=== PATIENT | male | born 1940 | race Caucasian/White ===

== ENCOUNTER 2019-02-14 10:43 | Inpatient (IN) | payer MEDICARE, OTHER ==
[~2019-02-14] VITALS: Ht 175.3 cm; Wt 57.9 kg
[~2019-02-14 10:43] MED LIST: AMLO2.5T2 PO; BUPR100T6 PO; HYDR12.55 PO; LISI-600 PO; METO25TA6 PO; SPIIN INH; TAMS0.4C32 PO; VIT1CAPS6 PO; XAL0.005OS EACHEYE
[2019-02-14 12:16] LABS: BASOPHILS # (AUTO) 0.1 X10'3 (0-0.2); BASOPHILS % (AUTO) 0.7 % (0-1); EOSINOPHILS # (AUTO) 0.2 X10'3 (0-0.9); EOSINOPHILS % (AUTO) 1.8 % (0-6); HEMATOCRIT 30.3 % (42.0-52.0); LYMPHOCYTES # (AUTO) 0.6 X10'3 (1.1-4.8); LYMPHOCYTES % (AUTO) 7.3 % (21-51); MEAN CORPUSCULAR HEMOGLOBIN 30.4 PG (27.0-31.0); MEAN CORPUSCULAR HGB CONC 32.9 g/dL (33.0-36.5); MEAN CORPUSCULAR VOLUME 92.3 FL (78-98); MEAN PLATELET VOLUME 7.2 FL (7.4-10.4); MONOCYTES # (AUTO) 0.6 X10'3 (0-0.9); NEUTROPHILS # (AUTO) 7.2 X10'3 (1.8-7.7); NEUTROPHILS % (AUTO) 83.2 % (42-75); PLATELET COUNT 277 X10'3 (140-440); RED BLOOD COUNT 3.28 X10'6 (4.70-6.10); RED CELL DISTRIBUTION WIDTH 15.2 % (11.5-14.5); WHITE BLOOD COUNT 8.7 X10'3 (4.5-11.0)
[2019-02-14 12:31] LABS: ALANINE AMINOTRANSFERASE 49 U/L (12-78); ALBUMIN 3.4 G/DL (3.4-5.0); ALBUMIN/GLOBULIN RATIO 0.8 (1.1-1.5); ALKALINE PHOSPHATASE 332 IU/L (46-116); ANION GAP 11 (8-16); ASPARTATE AMINO TRANSFERASE 25 U/L (10-37); BILIRUBIN,TOTAL 0.5 MG/DL (0.1-1.0); BLOOD UREA NITROGEN 94 MG/DL (7-18); BUN/CREATININE RATIO 13.9 (5.4-32.0); CALCIUM 8.9 MG/DL (8.5-10.1); CHLORIDE 108 MMOL/L (99-107); CREATININE 6.77 MG/DL (0.60-1.10); GLUCOSE 90 MG/DL (70-104); LIPASE 182 U/L (73-393); POTASSIUM 5.2 MMOL/L (3.5-5.1); SODIUM 136 MMOL/L (135-145); TOTAL CARBON DIOXIDE 17.2 MMOL/L (24-32); TOTAL PROTEIN 7.7 G/DL (6.4-8.2); eGFR 8 ML/MIN
[2019-02-14 13:04] LABS: MAGNESIUM 2.5 MG/DL (1.5-2.4); PHOSPHORUS 6.7 MG/DL (2.3-4.5)
[2019-02-14] MEDS ORDERED: ALBU8.5H8 INH (13:10)
[2019-02-14] MEDS ORDERED: ALBU2.5V12 NEB (13:10)
[2019-02-14 14:03] LABS: CLARITY,URINE SLIGHTLY CLOUDY (Clear); COLOR,URINE STRAW (Yellow); GLUCOSE, URINE NEGATIVE (Neg); KETONES,URINE NEGATIVE (Neg); LEUKOCYTE ESTERASE ,URINE MODERATE (Neg); NITRITES, URINE POSITIVE (Neg); OCCULT BLOOD,URINE SMALL (Neg); PH,URINE 5.5 (4.8-8.0); PROTEIN,URINE 100 mg/dl (Neg); UROBILINOGEN,URINE 0.2 E.U/dL (0.2-1.0)
[2019-02-14] MEDS ORDERED: ondansetron/PF 4mg/2ml inj IV PRN (14:10)
[2019-02-14] MEDS ORDERED: diphenhydrAMINE 25mg capsule PO PRN (14:10)
[2019-02-14] MEDS ORDERED: acetaminophen 325mg tablet PO PRN (14:10)
[2019-02-14 14:11] LABS: UA COLLECTION TYPE FOLEY CATH
[2019-02-14 14:12] LABS: BACTERIA,URINE 2+ /HPF (Neg); MUCUS STRANDS NONE SEEN /LPF (Neg); SQUAMOUS EPITHELIAL CELL,UR NONE SEEN /LPF (FEW); WBC CLUMPS,URINE MODERATE /HPF (NEGATIVE); WBC,URINE TNTC /HPF (0-4)
[2019-02-14] MEDS ORDERED: midazolam 2 mg/2 ml injection ONE (15:03)
[2019-02-14] MEDS ORDERED: LIDOcaine 1%/PF 5ML 10 MG/ML VIAL ONE (15:03)
[2019-02-14] MEDS ORDERED: heparin 1,000unit/ml 10ml vial 10 ML ONE (15:03)
[2019-02-14] MEDS ORDERED: fentaNYL/PF 50MCG/1 ML 2ML syringe ONE (15:04)
--- NOTE | 2019-02-14 15:13 | NUR ---
pt off floor to ir for Dialysis cath
--- NOTE | 2019-02-14 16:45 | NUR ---
pt back to ed from IR. resting with eyes closed no signs of distress. dime sized [place] of blood on dressing. will continue to monitor.
--- NOTE | 2019-02-14 17:37 | NUR ---
Received report from Emy in ER. Pt oriented to room, unit, and plan of care. Call light in reach. No needs voiced at this time.
[2019-02-14 18:00] VITALS: BP 160/69
--- NOTE | 2019-02-14 18:16 | NUR ---
Problems reprioritized. Patient report given, questions answered & plan of care reviewed with enma.
--- NOTE | 2019-02-14 18:24 | NUR ---
Patient in room ED 13. I have received report from Leona TORRES and had the opportunity to ask questions and assume patient care.
[2019-02-14] MEDS: docusate sod 100mg capsule PO SCH (19:57)
[2019-02-14] MEDS: HYDROcodone/acetaminophen 5mg/325mg tablet PO PRN (19:58)
[2019-02-14 22:00] VITALS: BP 152/73
[2019-02-15 02:00] VITALS: BP 141/66
[2019-02-15] MEDS: HYDROcodone/acetaminophen 5mg/325mg tablet PO PRN ×3 (04:39→23:56)
[2019-02-15 05:36] LABS: BASOPHILS # (AUTO) 0.1 X10'3 (0-0.2); BASOPHILS % (AUTO) 0.6 % (0-1); EOSINOPHILS # (AUTO) 0.1 X10'3 (0-0.9); EOSINOPHILS % (AUTO) 0.9 % (0-6); HEMATOCRIT 27.6 % (42.0-52.0); HEMOGLOBIN 9.4 g/dl (14.0-17.9); LYMPHOCYTES # (AUTO) 0.8 X10'3 (1.1-4.8); LYMPHOCYTES % (AUTO) 9.5 % (21-51); MEAN CORPUSCULAR HEMOGLOBIN 30.8 PG (27.0-31.0); MEAN CORPUSCULAR HGB CONC 34.1 g/dL (33.0-36.5); MEAN CORPUSCULAR VOLUME 90.4 FL (78-98); MEAN PLATELET VOLUME 7.5 FL (7.4-10.4); MONOCYTES # (AUTO) 0.8 X10'3 (0-0.9); MONOCYTES % (AUTO) 9.7 % (2-12); NEUTROPHILS # (AUTO) 6.4 X10'3 (1.8-7.7); NEUTROPHILS % (AUTO) 79.3 % (42-75); PLATELET COUNT 248 X10'3 (140-440); RED BLOOD COUNT 3.05 X10'6 (4.70-6.10)
[2019-02-15 05:57] LABS: ALANINE AMINOTRANSFERASE 40 U/L (12-78); ALBUMIN 2.9 G/DL (3.4-5.0); ALBUMIN/GLOBULIN RATIO 0.7 (1.1-1.5); ALKALINE PHOSPHATASE 281 IU/L (46-116); ANION GAP 16 (8-16); ASPARTATE AMINO TRANSFERASE 22 U/L (10-37); BILIRUBIN,TOTAL 0.5 MG/DL (0.1-1.0); BLOOD UREA NITROGEN 90 MG/DL (7-18); BUN/CREATININE RATIO 14.4 (5.4-32.0); CALCIUM 8.4 MG/DL (8.5-10.1); CHLORIDE 107 MMOL/L (99-107); CREATININE 6.23 MG/DL (0.60-1.10); GLUCOSE 87 MG/DL (70-104); POTASSIUM 5.1 MMOL/L (3.5-5.1); SODIUM 138 MMOL/L (135-145); TOTAL CARBON DIOXIDE 15.4 MMOL/L (24-32); TOTAL PROTEIN 6.9 G/DL (6.4-8.2); eGFR 9 ML/MIN
[2019-02-15 06:00] VITALS: BP 142/56
--- NOTE | 2019-02-15 06:56 | NUR ---
Patient in room PCU 3013. I have received report from Sangeeta TORRES and had the opportunity to ask questions and assume patient care.
--- NOTE | 2019-02-15 07:25 | NUR ---
Problems reprioritized. Patient report given, questions answered & plan of care reviewed with Josue TORRES.
[2019-02-15] MEDS: docusate sod 100mg capsule PO SCH ×2 (07:46→20:48)
[2019-02-15] MEDS ORDERED: albumin (human) 25% 100ml IV 100 ML IV PRN (08:00)
[2019-02-15] MEDS ORDERED: normal saline 1000ml 250 ML IV PRN (08:00)
[2019-02-15] MEDS ORDERED: epoetin 20,000 units/ml inj IV ONE (08:00)
[2019-02-15] MEDS ORDERED: heparin 1,000 units/ml 10ml inj HE ONE ×2 (08:00)
[2019-02-15 11:00] VITALS: BP 157/73
[2019-02-15] MEDS ORDERED: ipratropium/albuterol 3ml nebule NEB PRN (11:00)
--- NOTE | 2019-02-15 12:47 | NUR ---
Notified by [facility] that patient's HR 120-140's. Pt denies complaint, currently receiving dialysis. Notified Dr Huitron of HR and pt is asymptomatic. Dr Huitron reviewed EKG readings, orders received to continue to monitor. If patient becomes symptomatic, please notify Kacy Bran. Will continue to monitor.
--- NOTE | 2019-02-15 14:17 | NUR ---
patient on dialysis. Addendum: 02/15/19 at 1418 by Josue Green RN Amended: Links added.
--- NOTE | 2019-02-15 16:13 | NUR ---
Notiflaureen Donis, Pt HR has been in the 130's to the 140's for two hours. Pt is now resting in bed with no complaints.
[2019-02-15] MEDS: metoprolol tartrate 12.5mg (1/2 tablet) PO SCH ×2 (17:27→20:00)
[2019-02-15 18:00] VITALS: BP 126/72
--- NOTE | 2019-02-15 18:45 | NUR ---
Problems reprioritized. Patient report given, questions answered & plan of care reviewed with Sangeeta TORRES.
--- NOTE | 2019-02-15 18:47 | NUR ---
Patient in room PCU 3013. I have received report from Josue TORRES and had the opportunity to ask questions and assume patient care.
[2019-02-15] MEDS: ipratropium/albuterol 3ml nebule NEB SCH ×3 (19:00→23:42)
[2019-02-15] MEDS: amLODIPine 2.5mg tablet PO SCH (20:48)
[2019-02-15] MEDS ORDERED: ipratropium 0.5 MG/2.5ML nebule IH SCH (21:00)
[2019-02-15] MEDS ORDERED: albuterol 2.5 MG/3 ML nebule NEB SCH (21:00)
[2019-02-15 22:00] VITALS: BP 145/61
--- NOTE | 2019-02-16 01:05 | NUR ---
Noted Urine culture positive f/Staph aureus. Cathed spec sent 02/14. DENTAL CHAIR ASSEMBLER notified. No orders given at this time.
[2019-02-16 02:30] VITALS: BP 142/60
[2019-02-16] MEDS: ipratropium/albuterol 3ml nebule NEB SCH ×6 (03:00→23:56)
--- NOTE | 2019-02-16 06:15 | NUR ---
Patient in room PCU 3013. I have received report from BRIAN Rutherford and had the opportunity to ask questions and assume patient care.
--- NOTE | 2019-02-16 06:32 | NUR ---
Problems reprioritized. Patient report given, questions answered & plan of care reviewed with Ethel TORRES.
[2019-02-16 06:47] LABS: BASOPHILS # (AUTO) 0.1 X10'3 (0-0.2); BASOPHILS % (AUTO) 0.7 % (0-1); EOSINOPHILS # (AUTO) 0.1 X10'3 (0-0.9); EOSINOPHILS % (AUTO) 1.8 % (0-6); HEMATOCRIT 27.1 % (42.0-52.0); HEMOGLOBIN 9.4 g/dl (14.0-17.9); LYMPHOCYTES # (AUTO) 0.8 X10'3 (1.1-4.8); LYMPHOCYTES % (AUTO) 10.3 % (21-51); MEAN CORPUSCULAR HEMOGLOBIN 30.8 PG (27.0-31.0); MEAN CORPUSCULAR HGB CONC 34.7 g/dL (33.0-36.5); MEAN CORPUSCULAR VOLUME 88.8 FL (78-98); MEAN PLATELET VOLUME 7.7 FL (7.4-10.4); MONOCYTES % (AUTO) 13.5 % (2-12); NEUTROPHILS # (AUTO) 5.4 X10'3 (1.8-7.7); NEUTROPHILS % (AUTO) 73.7 % (42-75); PLATELET COUNT 249 X10'3 (140-440); RED BLOOD COUNT 3.05 X10'6 (4.70-6.10); RED CELL DISTRIBUTION WIDTH 14.3 % (11.5-14.5); WHITE BLOOD COUNT 7.3 X10'3 (4.5-11.0)
[2019-02-16 06:58] LABS: ALANINE AMINOTRANSFERASE 38 U/L (12-78); ALBUMIN 2.9 G/DL (3.4-5.0); ALBUMIN/GLOBULIN RATIO 0.7 (1.1-1.5); ALKALINE PHOSPHATASE 271 IU/L (46-116); ANION GAP 10 (8-16); ASPARTATE AMINO TRANSFERASE 34 U/L (10-37); BILIRUBIN,TOTAL 0.6 MG/DL (0.1-1.0); BLOOD UREA NITROGEN 37 MG/DL (7-18); BUN/CREATININE RATIO 9.8 (5.4-32.0); CALCIUM 8.7 MG/DL (8.5-10.1); CHLORIDE 100 MMOL/L (99-107); CREATININE 3.79 MG/DL (0.60-1.10); GLUCOSE 90 MG/DL (70-104); POTASSIUM 4.2 MMOL/L (3.5-5.1); SODIUM 134 MMOL/L (135-145); TOTAL PROTEIN 6.9 G/DL (6.4-8.2); eGFR 16 ML/MIN
[2019-02-16 07:00] VITALS: BP 144/65
[2019-02-16] MEDS: amLODIPine 2.5mg tablet PO SCH (08:47)
[2019-02-16] MEDS: docusate sod 100mg capsule PO SCH ×2 (08:47→19:53)
[2019-02-16] MEDS: metoprolol tartrate 12.5mg (1/2 tablet) PO SCH ×2 (08:48→19:54)
[2019-02-16] MEDS: beta-carotene(A) w/C & E + minerals tab PO SCH (08:48)
[2019-02-16 11:00] VITALS: BP 144/64
[2019-02-16] MEDS: HYDROcodone/acetaminophen 5mg/325mg tablet PO PRN (13:09)
[2019-02-16 15:00] VITALS: BP 144/65
[2019-02-16] MEDS: lactose-reduced food (Ensure Enlive) - 237ml bottle PO SCH (18:00)
--- NOTE | 2019-02-16 18:33 | NUR ---
Patient in room PCU 3013. I have received report from Ethel Mabry RN and had the opportunity to ask questions and assume patient care.
--- NOTE | 2019-02-16 18:42 | NUR ---
Malnutrition consult: Pt admit w/ ARF hx ESRD now s/p TDC placement pending outpatient HD setup per MD note. PO 25-50% avg regular diet fluctuating. Pt/family seen by RD and reports wt 3 months ago around 160 pounds prior to dysgeusia, decreased appetite, and persistent nausea. Pt reports sweeter things make him nauseous and he used to enjoy them. Pt has visible severe muscle/fat wasting in addition to 16% UBW loss 3 months severe given current wt 134 pounds and qualifies for severe malnutrition at this time. MD notified. Pt is agreeable to vanilla/strawberry ensure enlive TIDWM; MD notified. Pending MD verification prior to sending on trays. Pt is aware of this. RD provided pt/family w/ written/verbal malnutrition ed w/ RD contact information and encouraged pt to write in food preferences on menu and [place] options which sound appetizing. LBM 02/15. Will continue to monitor. Rec: 1. continue regular diet 2. vanilla/strawberry ensure enlive TIDWM; pending MD verification prior to sending on trays 3. routine bowel care 4. MVI for needs on HD w/ malnutrition 5. wts w/ HD Addendum: 02/16/19 at [address] Amended: Links added.
[2019-02-16 19:00] VITALS: BP 146/67
[2019-02-16] MEDS ORDERED: acetaminophen 325mg tablet PO PRN (19:45)
[2019-02-16 22:30] VITALS: BP 142/35
--- NOTE | 2019-02-17 02:14 | NUR ---
Accidently clicked the order for tylenol fever in the eMAR instead of the order for tylenol mild pain when giving it for cramping.
[2019-02-17] MEDS: ipratropium/albuterol 3ml nebule NEB SCH ×6 (02:33→23:13)
[2019-02-17 02:58] VITALS: BP 154/65
[2019-02-17] MEDS ORDERED: LORazepam 2 mg/ml vial IV ONE (03:00)
[2019-02-17] MEDS ORDERED: morphine 2 MG/ML inj. syringe IV ONE (03:00)
--- NOTE | 2019-02-17 03:08 | NUR ---
State Director called and notified about the patient experiencing anxiety. Patient states, "When I fall asleep, I wake up suddenly with anxiety feeling short of breath." New orders were to give Morphine 2mg IV once and wait 20-30 mins, and if patient still experiences anxiety with shortness of breath then to give 1mg Ativan IV once. Will continue to closely monitor and call the coil winder hand if patient is still experiencing the symptoms. Addendum: 02/17/19 at 0408 by Kady Donald RN Patient states his anxiety has subsided and will not need the ativan. Now he's sleeping soundly.
[2019-02-17 05:42] LABS: BASOPHILS % (AUTO) 0.6 % (0-1); EOSINOPHILS # (AUTO) 0.3 X10'3 (0-0.9); EOSINOPHILS % (AUTO) 3.6 % (0-6); HEMATOCRIT 24.2 % (42.0-52.0); HEMOGLOBIN 8.4 g/dl (14.0-17.9); LYMPHOCYTES # (AUTO) 0.7 X10'3 (1.1-4.8); LYMPHOCYTES % (AUTO) 10.4 % (21-51); MEAN CORPUSCULAR HEMOGLOBIN 30.7 PG (27.0-31.0); MEAN CORPUSCULAR HGB CONC 34.5 g/dL (33.0-36.5); MEAN CORPUSCULAR VOLUME 89.1 FL (78-98); MEAN PLATELET VOLUME 7.7 FL (7.4-10.4); MONOCYTES % (AUTO) 13.9 % (2-12); NEUTROPHILS # (AUTO) 5.1 X10'3 (1.8-7.7); NEUTROPHILS % (AUTO) 71.5 % (42-75); PLATELET COUNT 212 X10'3 (140-440); RED BLOOD COUNT 2.72 X10'6 (4.70-6.10); RED CELL DISTRIBUTION WIDTH 14.3 % (11.5-14.5); WHITE BLOOD COUNT 7.2 X10'3 (4.5-11.0)
[2019-02-17 05:45] LABS: ALANINE AMINOTRANSFERASE 33 U/L (12-78); ALBUMIN 2.6 G/DL (3.4-5.0); ALBUMIN/GLOBULIN RATIO 0.7 (1.1-1.5); ALKALINE PHOSPHATASE 236 IU/L (46-116); ANION GAP 11 (8-16); ASPARTATE AMINO TRANSFERASE 33 U/L (10-37); BILIRUBIN,TOTAL 0.5 MG/DL (0.1-1.0); BLOOD UREA NITROGEN 42 MG/DL (7-18); BUN/CREATININE RATIO 9.9 (5.4-32.0); CHLORIDE 98 MMOL/L (99-107); CREATININE 4.26 MG/DL (0.60-1.10); GLUCOSE 83 MG/DL (70-104); POTASSIUM 4.2 MMOL/L (3.5-5.1); SODIUM 129 MMOL/L (135-145); TOTAL CARBON DIOXIDE 20.5 MMOL/L (24-32); TOTAL PROTEIN 6.2 G/DL (6.4-8.2); eGFR 14 ML/MIN
[2019-02-17 06:00] VITALS: BP 143/57
--- NOTE | 2019-02-17 06:30 | NUR ---
Problems reprioritized. Patient report given, questions answered & plan of care reviewed with BRIAN Gutierrez.
--- NOTE | 2019-02-17 07:13 | NUR ---
Patient in room PCU 3013. I have received report from BRIAN COULTER and had the opportunity to ask questions and assume patient care.
[2019-02-17] MEDS: lactose-reduced food (Ensure Enlive) - 237ml bottle PO SCH ×3 (08:00→18:00)
[2019-02-17] MEDS ORDERED: heparin 1,000unit/ml 10ml vial 10 ML IV ONE (08:00)
[2019-02-17] MEDS ORDERED: heparin 1,000 units/ml 10ml inj HE ONE ×2 (08:00)
[2019-02-17] MEDS ORDERED: albumin (human) 25% 100ml IV 100 ML IV PRN (08:00)
[2019-02-17] MEDS ORDERED: epoetin 20,000 units/ml inj IV ONE (08:00)
[2019-02-17] MEDS ORDERED: heparin 1,000 units/ml 10ml inj IV ONE (08:00)
[2019-02-17] MEDS ORDERED: normal saline 1000ml 250 ML IV PRN (08:00)
[2019-02-17] MEDS: docusate sod 100mg capsule PO SCH ×2 (08:18→19:28)
[2019-02-17] MEDS: metoprolol tartrate 12.5mg (1/2 tablet) PO SCH ×2 (08:21→19:28)
[2019-02-17] MEDS: amLODIPine 2.5mg tablet PO SCH (08:21)
[2019-02-17] MEDS: beta-carotene(A) w/C & E + minerals tab PO SCH (08:22)
[2019-02-17 11:00] VITALS: BP 160/85
[2019-02-17 15:00] VITALS: BP 144/64
[2019-02-17 15:15] LABS: ALANINE AMINOTRANSFERASE 39 U/L (12-78); ALBUMIN 2.7 G/DL (3.4-5.0); ALBUMIN/GLOBULIN RATIO 0.7 (1.1-1.5); ALKALINE PHOSPHATASE 250 IU/L (46-116); ANION GAP 6 (8-16); ASPARTATE AMINO TRANSFERASE 34 U/L (10-37); BILIRUBIN,TOTAL 0.5 MG/DL (0.1-1.0); BLOOD UREA NITROGEN 13 MG/DL (7-18); CALCIUM 7.9 MG/DL (8.5-10.1); CHLORIDE 101 MMOL/L (99-107); CREATININE 1.86 MG/DL (0.60-1.10); GLUCOSE 96 MG/DL (70-104); PHOSPHORUS 2.5 MG/DL (2.3-4.5); POTASSIUM 3.7 MMOL/L (3.5-5.1); SODIUM 136 MMOL/L (135-145); TOTAL CARBON DIOXIDE 28.9 MMOL/L (24-32); TOTAL PROTEIN 6.5 G/DL (6.4-8.2); eGFR 35 ML/MIN
--- NOTE | 2019-02-17 18:17 | NUR ---
Problems reprioritized. Patient report given, questions answered & plan of care reviewed with BRIAN ZARAGOZA.
[2019-02-17 19:00] VITALS: BP 136/59
[2019-02-17 22:34] VITALS: BP 142/63
--- NOTE | 2019-02-18 01:01 | NUR ---
Patient in room PCU 3013. I have received report from BRIAN Gutierrez and had the opportunity to ask questions and assume patient care.
[2019-02-18] MEDS: ipratropium/albuterol 3ml nebule NEB SCH ×6 (02:38→23:25)
[2019-02-18 02:58] VITALS: BP 138/68
[2019-02-18] MEDS: morphine 2 MG/ML inj. syringe IV PRN ×2 (03:55→22:15)
[2019-02-18 05:29] LABS: BASOPHILS # (AUTO) 0.1 X10'3 (0-0.2); BASOPHILS % (AUTO) 0.8 % (0-1); EOSINOPHILS # (AUTO) 0.2 X10'3 (0-0.9); EOSINOPHILS % (AUTO) 2.3 % (0-6); HEMATOCRIT 25.3 % (42.0-52.0); HEMOGLOBIN 8.8 g/dl (14.0-17.9); LYMPHOCYTES # (AUTO) 0.7 X10'3 (1.1-4.8); LYMPHOCYTES % (AUTO) 8.4 % (21-51); MEAN CORPUSCULAR HEMOGLOBIN 30.7 PG (27.0-31.0); MEAN CORPUSCULAR HGB CONC 34.9 g/dL (33.0-36.5); MEAN CORPUSCULAR VOLUME 88.1 FL (78-98); MEAN PLATELET VOLUME 7.4 FL (7.4-10.4); MONOCYTES # (AUTO) 1.2 X10'3 (0-0.9); MONOCYTES % (AUTO) 14.9 % (2-12); NEUTROPHILS # (AUTO) 5.8 X10'3 (1.8-7.7); NEUTROPHILS % (AUTO) 73.6 % (42-75); PLATELET COUNT 230 X10'3 (140-440); RED BLOOD COUNT 2.88 X10'6 (4.70-6.10); RED CELL DISTRIBUTION WIDTH 14.6 % (11.5-14.5); WHITE BLOOD COUNT 7.9 X10'3 (4.5-11.0)
[2019-02-18 05:38] LABS: ALANINE AMINOTRANSFERASE 39 U/L (12-78); ALBUMIN 2.6 G/DL (3.4-5.0); ALBUMIN/GLOBULIN RATIO 0.7 (1.1-1.5); ALKALINE PHOSPHATASE 243 IU/L (46-116); ANION GAP 10 (8-16); ASPARTATE AMINO TRANSFERASE 38 U/L (10-37); BILIRUBIN,TOTAL 0.5 MG/DL (0.1-1.0); BLOOD UREA NITROGEN 21 MG/DL (7-18); BUN/CREATININE RATIO 6.9 (5.4-32.0); CALCIUM 8.2 MG/DL (8.5-10.1); CHLORIDE 101 MMOL/L (99-107); CREATININE 3.04 MG/DL (0.60-1.10); GLUCOSE 81 MG/DL (70-104); MAGNESIUM 1.9 MG/DL (1.5-2.4); SODIUM 136 MMOL/L (135-145); TOTAL CARBON DIOXIDE 25.4 MMOL/L (24-32); TOTAL PROTEIN 6.3 G/DL (6.4-8.2); eGFR 20 ML/MIN
[2019-02-18 06:00] VITALS: BP 147/65
--- NOTE | 2019-02-18 06:20 | NUR ---
Patient in room PCU 3013. I have received report from sophie major and had the opportunity to ask questions and assume patient care.
--- NOTE | 2019-02-18 06:23 | NUR ---
Problems reprioritized. Patient report given, questions answered & plan of care reviewed with BRIAN Gutierrez.
--- NOTE | 2019-02-18 06:30 | NUR ---
Patient in room PCU 3013. I have received report from BRIAN ZARAGOZA and had the opportunity to ask questions and assume patient care.
[2019-02-18 07:56] LABS: ALANINE AMINOTRANSFERASE 42 U/L (12-78); ALBUMIN 2.8 G/DL (3.4-5.0); ALBUMIN/GLOBULIN RATIO 0.8 (1.1-1.5); ALKALINE PHOSPHATASE 257 IU/L (46-116); ANION GAP 5 (8-16); ASPARTATE AMINO TRANSFERASE 36 U/L (10-37); BILIRUBIN,TOTAL 0.6 MG/DL (0.1-1.0); BLOOD UREA NITROGEN 21 MG/DL (7-18); BUN/CREATININE RATIO 6.5 (5.4-32.0); CALCIUM 8.2 MG/DL (8.5-10.1); CHLORIDE 101 MMOL/L (99-107); CREATININE 3.22 MG/DL (0.60-1.10); GLUCOSE 81 MG/DL (70-104); SODIUM 135 MMOL/L (135-145); TOTAL CARBON DIOXIDE 29.3 MMOL/L (24-32); TOTAL PROTEIN 6.4 G/DL (6.4-8.2); eGFR 19 ML/MIN
[2019-02-18] MEDS: lactose-reduced food (Ensure Enlive) - 237ml bottle PO SCH ×4 (08:00→18:00)
[2019-02-18] MEDS: metoprolol tartrate 12.5mg (1/2 tablet) PO SCH ×2 (09:22→20:05)
[2019-02-18] MEDS: amLODIPine 2.5mg tablet PO SCH (09:23)
[2019-02-18] MEDS: docusate sod 100mg capsule PO SCH ×2 (09:23→20:04)
[2019-02-18] MEDS: beta-carotene(A) w/C & E + minerals tab PO SCH (09:23)
--- NOTE | 2019-02-18 09:25 | NUR ---
AM meds administered at this time per primary RN request. BP and HR assessed before med administration. BP 132/66, HR 87.
[2019-02-18 11:00] VITALS: BP 148/72
[2019-02-18 11:47] LABS: HBSAG SCREEN Negative (Negative)
[2019-02-18 11:47] LABS: HEP B CORE AB, IGM Negative (Negative)
[2019-02-18 13:45] LABS: UREA NITROGEN 24HR,URINE 1.5 GM/24HR (7-20)
[2019-02-18 15:00] VITALS: BP 139/66
--- NOTE | 2019-02-18 15:04 | NUR ---
Reassessment: Pt PO 75-100% past 2 meals improving though overall PO mostly low 25-50% fluctuating. RD recommended new ONS given covering applications analyst now changed. Pending MD approval prior to sending on trays. LBM 02/15. Pt HD held pending 24 hours per MD given improvement in renal function s/p urinary obstruction resolution. Will continue to monitor. Rec: 1. continue regular diet 2. vanilla/strawberry ensure enlive TIDWM; pending MD verification prior to sending on trays 3. routine bowel care 4. MVI for needs w/ malnutrition 5. weekly wts Addendum: 02/18/19 at [address] Amended: Links added.
[2019-02-18 18:00] VITALS: BP 132/57
--- NOTE | 2019-02-18 18:20 | NUR ---
Problems reprioritized. Patient report given, questions answered & plan of care reviewed with BRIAN ZARAGOZA.
--- NOTE | 2019-02-18 21:40 | NUR ---
Patient in room PCU 3013. I have received report from BRIAN Gutierrez and had the opportunity to ask questions and assume patient care.
[2019-02-18 22:00] VITALS: BP 142/64
[2019-02-19 02:00] VITALS: BP 140/63
[2019-02-19] MEDS: ipratropium/albuterol 3ml nebule NEB SCH ×6 (02:57→22:56)
[2019-02-19 06:00] VITALS: BP 154/71
[2019-02-19 06:16] LABS: BASOPHILS % (AUTO) 0.6 % (0-1); EOSINOPHILS # (AUTO) 0.3 X10'3 (0-0.9); HEMATOCRIT 25.8 % (42.0-52.0); HEMOGLOBIN 8.8 g/dl (14.0-17.9); LYMPHOCYTES # (AUTO) 0.6 X10'3 (1.1-4.8); LYMPHOCYTES % (AUTO) 7.5 % (21-51); MEAN CORPUSCULAR HEMOGLOBIN 30.6 PG (27.0-31.0); MEAN CORPUSCULAR HGB CONC 34.2 g/dL (33.0-36.5); MEAN CORPUSCULAR VOLUME 89.7 FL (78-98); MEAN PLATELET VOLUME 7.5 FL (7.4-10.4); MONOCYTES # (AUTO) 1.3 X10'3 (0-0.9); MONOCYTES % (AUTO) 14.9 % (2-12); NEUTROPHILS # (AUTO) 6.3 X10'3 (1.8-7.7); PLATELET COUNT 236 X10'3 (140-440); RED BLOOD COUNT 2.88 X10'6 (4.70-6.10); RED CELL DISTRIBUTION WIDTH 14.3 % (11.5-14.5); WHITE BLOOD COUNT 8.5 X10'3 (4.5-11.0)
--- NOTE | 2019-02-19 06:28 | NUR ---
Problems reprioritized. Patient report given, questions answered & plan of care reviewed with AZAR Fernandes RN.
[2019-02-19 06:35] LABS: ALANINE AMINOTRANSFERASE 40 U/L (12-78); ALBUMIN 2.8 G/DL (3.4-5.0); ALBUMIN/GLOBULIN RATIO 0.8 (1.1-1.5); ALKALINE PHOSPHATASE 258 IU/L (46-116); ANION GAP 6 (8-16); ASPARTATE AMINO TRANSFERASE 34 U/L (10-37); BILIRUBIN,TOTAL 0.6 MG/DL (0.1-1.0); BLOOD UREA NITROGEN 35 MG/DL (7-18); BUN/CREATININE RATIO 8.6 (5.4-32.0); CALCIUM 8.3 MG/DL (8.5-10.1); CHLORIDE 101 MMOL/L (99-107); CREATININE 4.08 MG/DL (0.60-1.10); GLUCOSE 76 MG/DL (70-104); POTASSIUM 4.3 MMOL/L (3.5-5.1); SODIUM 135 MMOL/L (135-145); TOTAL CARBON DIOXIDE 27.9 MMOL/L (24-32); TOTAL PROTEIN 6.3 G/DL (6.4-8.2); eGFR 14 ML/MIN
--- NOTE | 2019-02-19 06:44 | NUR ---
Patient in room PCU 3013A. I have received report from Kady TORRES and had the opportunity to ask questions and assume patient care.
[2019-02-19 07:55] LABS: ALANINE AMINOTRANSFERASE 43 U/L (12-78); ALBUMIN 2.9 G/DL (3.4-5.0); ALBUMIN/GLOBULIN RATIO 0.8 (1.1-1.5); ALKALINE PHOSPHATASE 275 IU/L (46-116); ANION GAP 7 (8-16); ASPARTATE AMINO TRANSFERASE 35 U/L (10-37); BILIRUBIN,TOTAL 0.6 MG/DL (0.1-1.0); BLOOD UREA NITROGEN 36 MG/DL (7-18); BUN/CREATININE RATIO 8.6 (5.4-32.0); CALCIUM 8.5 MG/DL (8.5-10.1); CHLORIDE 101 MMOL/L (99-107); CREATININE 4.17 MG/DL (0.60-1.10); GLUCOSE 78 MG/DL (70-104); POTASSIUM 4.4 MMOL/L (3.5-5.1); SODIUM 135 MMOL/L (135-145); TOTAL CARBON DIOXIDE 27.5 MMOL/L (24-32); TOTAL PROTEIN 6.6 G/DL (6.4-8.2); eGFR 14 ML/MIN
[2019-02-19] MEDS: lactose-reduced food (Ensure Enlive) - 237ml bottle PO SCH ×6 (08:00→18:00)
[2019-02-19] MEDS: docusate sod 100mg capsule PO SCH ×2 (08:08→21:43)
[2019-02-19] MEDS: beta-carotene(A) w/C & E + minerals tab PO SCH (08:08)
[2019-02-19] MEDS: amLODIPine 2.5mg tablet PO SCH (08:09)
[2019-02-19] MEDS: metoprolol tartrate 12.5mg (1/2 tablet) PO SCH ×2 (08:09→21:42)
[2019-02-19 11:00] VITALS: BP 150/66
[2019-02-19] MEDS ORDERED: normal saline 1000ml 250 ML IV PRN (12:16)
[2019-02-19] MEDS ORDERED: heparin 1,000 units/ml 10ml inj HE ONE (12:20)
[2019-02-19] MEDS ORDERED: heparin 1,000 units/ml 10ml inj IV ONE (12:20)
[2019-02-19 13:05] LABS: CLARITY,URINE SLIGHTLY CLOUDY (Clear); COLOR,URINE STRAW (Yellow); GLUCOSE, URINE NEGATIVE (Neg); KETONES,URINE NEGATIVE (Neg); LEUKOCYTE ESTERASE ,URINE LARGE (Neg); NITRITES, URINE NEGATIVE (Neg); OCCULT BLOOD,URINE MODERATE (Neg); PH,URINE 6.5 (4.8-8.0); PROTEIN,URINE 100 mg/dl (Neg); UROBILINOGEN,URINE 0.2 E.U/dL (0.2-1.0)
[2019-02-19 13:08] LABS: UA COLLECTION TYPE FOLEY CATH
[2019-02-19 13:13] LABS: BACTERIA,URINE 2+ /HPF (Neg); MUCUS STRANDS NONE SEEN /LPF (Neg); RBC,URINE 20-50 /HPF (0-2); SQUAMOUS EPITHELIAL CELL,UR NONE SEEN /LPF (FEW); WBC CLUMPS,URINE MODERATE /HPF (NEGATIVE); WBC,URINE TNTC /HPF (0-4)
[2019-02-19 15:00] VITALS: BP 130/55
[2019-02-19] MEDS: cephalexin 500mg capsule PO SCH (17:04)
--- NOTE | 2019-02-19 18:12 | NUR ---
Patient in room PCU 3013. I have received report from BRIAN Ho and had the opportunity to ask questions and assume patient care.
--- NOTE | 2019-02-19 18:19 | NUR ---
Problems reprioritized. Patient report given, questions answered & plan of care reviewed with Rocio TORRES.
[2019-02-19 19:00] VITALS: BP 161/70
[2019-02-19] MEDS: morphine 2 MG/ML inj. syringe IV PRN (21:47)
[2019-02-19 23:02] VITALS: BP 155/63
[2019-02-20] MEDS: cephalexin 500mg capsule PO SCH ×3 (00:16→16:23)
[2019-02-20 03:12] VITALS: BP 132/65
[2019-02-20] MEDS: ipratropium/albuterol 3ml nebule NEB SCH ×6 (03:19→23:10)
[2019-02-20] MEDS: morphine 2 MG/ML inj. syringe IV PRN ×2 (03:25→23:36)
--- NOTE | 2019-02-20 05:57 | NUR ---
Problems reprioritized. Patient report given, questions answered & plan of care reviewed with BRIAN Ho.
[2019-02-20 06:00] VITALS: BP 108/64
--- NOTE | 2019-02-20 07:09 | NUR ---
Patient in room PCU 3013A. I have received report from Rocio TORRES and had the opportunity to ask questions and assume patient care.
[2019-02-20] MEDS: docusate sod 100mg capsule PO SCH ×2 (07:39→20:28)
[2019-02-20] MEDS: metoprolol tartrate 12.5mg (1/2 tablet) PO SCH ×2 (07:40→20:29)
[2019-02-20] MEDS: beta-carotene(A) w/C & E + minerals tab PO SCH (07:40)
[2019-02-20] MEDS: amLODIPine 2.5mg tablet PO SCH (07:40)
[2019-02-20 07:58] LABS: ALANINE AMINOTRANSFERASE 39 U/L (12-78); ALBUMIN 2.7 G/DL (3.4-5.0); ALBUMIN/GLOBULIN RATIO 0.8 (1.1-1.5); ALKALINE PHOSPHATASE 261 IU/L (46-116); ANION GAP 8 (8-16); ASPARTATE AMINO TRANSFERASE 30 U/L (10-37); BILIRUBIN,TOTAL 0.5 MG/DL (0.1-1.0); BLOOD UREA NITROGEN 55 MG/DL (7-18); BUN/CREATININE RATIO 11.9 (5.4-32.0); CALCIUM 8.2 MG/DL (8.5-10.1); CHLORIDE 100 MMOL/L (99-107); CREATININE 4.61 MG/DL (0.60-1.10); GLUCOSE 75 MG/DL (70-104); POTASSIUM 4.6 MMOL/L (3.5-5.1); SODIUM 132 MMOL/L (135-145); TOTAL CARBON DIOXIDE 23.7 MMOL/L (24-32); TOTAL PROTEIN 6.3 G/DL (6.4-8.2); eGFR 12 ML/MIN
[2019-02-20] MEDS: lactose-reduced food (Ensure Enlive) - 237ml bottle PO SCH ×6 (08:00→18:06)
[2019-02-20] MEDS ORDERED: heparin 1,000 units/ml 10ml inj HE ONE ×2 (09:10→12:40)
[2019-02-20 11:00] VITALS: BP 125/61
[2019-02-20] MEDS ORDERED: heparin 1,000 units/ml 10ml inj IV ONE ×2 (12:35)
[2019-02-20] MEDS ORDERED: CEPH500C5 PO (14:04)
[2019-02-20 15:00] VITALS: BP 116/51
--- NOTE | 2019-02-20 18:30 | NUR ---
Problems reprioritized. Patient report given, questions answered & plan of care reviewed with Bharti TORRES.
[2019-02-20 19:00] VITALS: BP 121/48
[2019-02-20] MEDS: lactobacillus rhamnosus 10,000 MMU CELLS/CAPSULE PO SCH (20:28)
[2019-02-20 23:00] VITALS: BP 124/50
[2019-02-21] MEDS: cephalexin 500mg capsule PO SCH ×3 (00:23→16:39)
[2019-02-21 03:00] VITALS: BP 118/48
[2019-02-21] MEDS: ipratropium/albuterol 3ml nebule NEB SCH ×4 (03:02→14:54)
[2019-02-21 06:00] VITALS: BP 115/46
--- NOTE | 2019-02-21 06:28 | NUR ---
Patient in room PCU 3013. I have received report from BRIAN Hay and had the opportunity to ask questions and assume patient care. Patient currently resting in bed, bed locked and low, call light in reach, no acute distress, will continue to monitor
--- NOTE | 2019-02-21 06:50 | NUR ---
Problems reprioritized. Patient report given, questions answered & plan of care reviewed with [place] TORRES.
[2019-02-21] MEDS: amLODIPine 2.5mg tablet PO SCH (07:51)
[2019-02-21] MEDS: beta-carotene(A) w/C & E + minerals tab PO SCH (07:51)
[2019-02-21] MEDS: lactobacillus rhamnosus 10,000 MMU CELLS/CAPSULE PO SCH (07:51)
[2019-02-21] MEDS: docusate sod 100mg capsule PO SCH (07:51)
[2019-02-21] MEDS: metoprolol tartrate 12.5mg (1/2 tablet) PO SCH (07:51)
[2019-02-21] MEDS: lactose-reduced food (Ensure Enlive) - 237ml bottle PO SCH ×4 (07:52→10:16)
--- NOTE | 2019-02-21 09:54 | NUR ---
Problems reprioritized. Patient report given, questions answered & plan of care reviewed with BRIAN Jernigan. Patient up ambulating with visitors, stable at time of hand off.
[2019-02-21 11:00] VITALS: BP 106/48
[2019-02-21 15:00] VITALS: BP 119/53
== END 2019-02-21 17:17 | disposition home or self-care (01) | DRG 673 ==
LOC: ER 10:45 → ED HOLD 14:22 → PCU 3S 17:25
PROC: 0JH63XZ Insertion of Tunneled Vascular Access Device into Chest Subcutaneous Tissue and Fascia, Percutaneous Approach (ICD-10-PCS; principal; 2019-02-14)
PROC: 02HV33Z Insertion of Infusion Device into Superior Vena Cava, Percutaneous Approach (ICD-10-PCS; 2019-02-14)
PROC: B548ZZA Ultrasonography of Superior Vena Cava, Guidance (ICD-10-PCS; 2019-02-14)
PROC: B5181ZA Fluoroscopy of Superior Vena Cava using Low Osmolar Contrast, Guidance (ICD-10-PCS; 2019-02-14)
PROC: 5A1D70Z Performance of Urinary Filtration, Intermittent, Less than 6 Hours Per Day (ICD-10-PCS; 2019-02-15)
PROC: 5A1D70Z Performance of Urinary Filtration, Intermittent, Less than 6 Hours Per Day (ICD-10-PCS; 2019-02-17)
PROC: 5A1D70Z Performance of Urinary Filtration, Intermittent, Less than 6 Hours Per Day (ICD-10-PCS; 2019-02-20)
DX: N17.9 Acute kidney failure, unspecified (principal); E43 Unspecified severe protein-calorie malnutrition; I12.0 Hypertensive chronic kidney disease with stage 5 chronic kidney disease or end stage renal disease; Z68.1 Body mass index [BMI] 19.9 or less, adult; E87.5 Hyperkalemia; J44.9 Chronic obstructive pulmonary disease, unspecified; N18.6 End stage renal disease; N30.90 Cystitis, unspecified without hematuria; N35.919 Unspecified urethral stricture, male, unspecified site; Z99.2 Dependence on renal dialysis; Z79.899 Other long term (current) drug therapy
CPT/HCPCS: 36415; 36558; 71045; 76775; 76937; 77001; 80053; 81001; 82570; 83690; 83735; 84100; 84156; 84560; 85025; 86705; 86706; 87077; 87081; 87088; 87186; 87340; 94640; 94760; 99152; 99153; 99285; A9270; C1750; C1769; C1894; G0257; G0378; J1644; J2150; J2250; J2270; J3010; Q4081

== ENCOUNTER 2019-08-13 07:21 | Day surgery (SDC) | payer OTHER ==
[2019-08-06 16:36] LABS: BASOPHILS # (AUTO) 0.1 X10'3 (0-0.2); BASOPHILS % (AUTO) 0.7 % (0-1); EOSINOPHILS # (AUTO) 0.6 X10'3 (0-0.9); LYMPHOCYTES # (AUTO) 0.4 X10'3 (1.1-4.8); LYMPHOCYTES % (AUTO) 4.2 % (21-51); MEAN CORPUSCULAR HEMOGLOBIN 32.4 PG (27.0-31.0); MEAN CORPUSCULAR HGB CONC 34.5 g/dL (33.0-36.5); MEAN CORPUSCULAR VOLUME 93.9 FL (78-98); MEAN PLATELET VOLUME 7.5 FL (7.4-10.4); MONOCYTES % (AUTO) 9.8 % (2-12); NEUTROPHILS # (AUTO) 7.8 X10'3 (1.8-7.7); NEUTROPHILS % (AUTO) 79.3 % (42-75); PRE OP HEMATOCRIT 32.4 % (42.0-52.0); PRE OP HEMOGLOBIN 11.2 g/dL (14.0-17.9); PRE OP PLATELET COUNT 250 X10'3 (140-440); RED BLOOD COUNT 3.44 X10'6 (4.70-6.10); RED CELL DISTRIBUTION WIDTH 14.1 % (11.5-14.5)
[2019-08-06 16:47] LABS: ALBUMIN/GLOBULIN RATIO 0.8 (1.1-1.5); ALKALINE PHOSPHATASE 440 IU/L (46-116); BLOOD UREA NITROGEN 45 MG/DL (7-18); BUN/CREATININE RATIO 11.3 (5.4-32.0); CHLORIDE 93 MMOL/L (99-107); CREATININE 3.98 MG/DL (0.60-1.10); PRE OP ALT 52 U/L (30-65); PRE OP ANION GAP 5 (8-16); PRE OP AST 32 U/L (10-37); PRE OP BILIRUB, TOTAL 0.7 MG/DL (0.0-1.0); PRE OP GLUCOSE 116 MG/DL (70-104); PRE OP POTASSIUM 3.7 MMOL/L (3.4-5.1); TOTAL PROTEIN 6.9 G/DL (6.4-8.2); eGFR 15 ML/MIN
[2019-08-06 16:52] LABS: PRE OP SODIUM 126 MMOL/L (135-145)
--- NOTE | 2019-08-06 17:30 | NUR ---
SODIUM 126. DR MCCLAIN NOTIFIED. TOLD TO INSTRUCT PT TO RESTRICT FLUID AND INCREASE SALE. ISTAT DOS. PT NOTIFIED AND PT VERBALIZED UNDERSTANDING.
[2019-08-13] VITALS (7 sets, daily range): BP systolic 144–166; BP diastolic 78–93
[~2019-08-13] VITALS: Ht 172.7 cm; Wt 60.6 kg
[~2019-08-13 07:21] MED LIST changes: +ALBU8.5H8 INH; -BUPR100T6 PO; +DOCUMENT DATE & TIME OF BETA-BLOCKER PO ONE; -HYDR12.55 PO; +LEVO250T58 PO; +PRED10TA PO; -TAMS0.4C32 PO; -VIT1CAPS6 PO; -XAL0.005OS EACHEYE; +cefazolin/dext.iso 2gm/50ml 50 ML IV ONE; +famotidine 20mg tablet PO ONE; +normal saline 1000ml 1,000 ML IV SCH
[2019-08-13] MEDS ORDERED: heparin 10,000 units/1 ML INJ ONE (08:55)
[2019-08-13] MEDS ORDERED: BUPIVAcaine/PF 2.5mg/ml (0.25%) 10ml vial ONE (08:55)
[2019-08-13 08:56] LABS: ISTAT CREATININE 3.2 mg/dL (0.8-1.3); ISTAT HGB 11.6 g/dl (14.0-18.0); ISTAT IONIZED CALCIUM 1.2 mmol/L (1.03-1.32); ISTAT K 4.5 mmol/L (3.5-5.1); POC BUN/CREATININE RATIO 18.8 (5.4-32.0)
[2019-08-13] MEDS ORDERED: ringers solution, lacted 1,000 ML IV SCH (09:31)
[2019-08-13] MEDS ORDERED: meperidine/PF 25mg/ml syringe IV PRN ×3 (09:35)
[2019-08-13] MEDS ORDERED: ondansetron/PF 4mg/2ml inj IV PRN (09:35)
[2019-08-13] MEDS ORDERED: morphine 4 MG/ML inj SYRINge IV PRN (09:35)
[2019-08-13] MEDS ORDERED: proCHLORperazine 10 MG/2 ml inj IV PRN (09:35)
[2019-08-13] MEDS ORDERED: morphine 2 MG/ML inj. syringe IV PRN (09:35)
[2019-08-13] MEDS ORDERED: dexamethasone sod phosphate 10mg/ml inj ONE (10:50)
[2019-08-13] MEDS ORDERED: desflurane 240ml liquid inh. IH ONE (10:50)
[2019-08-13] MEDS ORDERED: ondansetron/PF 4mg/2ml inj ONE (10:50)
[2019-08-13] MEDS ORDERED: fentaNYL/PF 50MCG/1 ML 2ML syringe ONE (10:54)
[2019-08-13] MEDS ORDERED: midazolam 2 mg/2 ml injection ONE (10:54)
[2019-08-13] MEDS ORDERED: propofol inj 20 ML IV ONE (10:58)
[2019-08-13] MEDS ORDERED: LIDOcaine 2% (20mg/ml) 5ml vial ONE (11:39)
--- NOTE | 2019-08-13 11:53 | NUR ---
Received from OR via [facility] , accompanied by Anesthesiologist JOSH and report given by Anesthesiolgist. PATIENT WITH 20G PIV IN RIGHT UE RUNNING LR AT 100. DENIES PAIN . VICENTE CATH TO RIGHT CHEST WALL (OLD) LEFT WRIST DRESSING IS SPOTTED WITH BLOOD BUT CONTAINED WITHIN DRESSING. VSS. 10L MASK ON WITH 100% SATURATIONS. AFIB HR MD AWARE OF THIS. Addendum: 08/13/19 at 1206 by Oliverio Morales RN, RN Amended: Links added.
--- NOTE | 2019-08-13 12:43 | NUR ---
D/C FROM PACU I HAVE REVIEWED D/C INSTRUCTIONS WITH PATIENT AND FAMILY AND THEY HAVE VERBALIZED UNDERSTANDING. PATIENT D/C HOME WITH ALL BELONGINGS AND FAMILY GAVE TRANSPORT HOME. [place] DROVE PATIENT HOME. DRESSING STILL SPOTTED WITH BLOOD BUT HAS NOT SPREAD FROM ENTRY TO RECOVERY TO DC. Addendum: 08/13/19 at 1258 by Oliverio Morales RN, RN Amended: Links added.
== END 2019-08-13 12:43 | disposition home or self-care (01) ==
LOC: PAS 07:21
PROVIDERS: ATTEND Surgery
DX: I12.0 Hypertensive chronic kidney disease with stage 5 chronic kidney disease or end stage renal disease (principal); N18.6 End stage renal disease; J44.9 Chronic obstructive pulmonary disease, unspecified; Z87.891 Personal history of nicotine dependence; Z79.899 Other long term (current) drug therapy; Z99.2 Dependence on renal dialysis; Z98.890 Other specified postprocedural states; Z87.442 Personal history of urinary calculi; Z11.59 Encounter for screening for other viral diseases
CPT/HCPCS: 36415; 36821; 80047; 80053; 85025; 87081; 93005; J1100; J1644; J2001; J2250; J2405; J2704; J3010; J3490; J7030; J7040; J7120; U0003; A4215; A4618; A7000